=== PATIENT | female | born 1980 | race Caucasian/White ===

== ENCOUNTER → 2021-03-14 14:54 | Outpatient (CLI) | payer MEDICAID, SELFPAY ==
--- NOTE | 2021-03-14 15:02 | RAD_ITS ---
STUDY: X-RAY - LUMBAR SPINE REASON FOR EXAM: Female, 40 years old. DEGENERATIVE LUMBAR DISC TECHNIQUE: 5 view(s) of the lumbar spine were obtained. COMPARISON: None FINDINGS: Normal lumbar lordosis. There is no substantial scoliosis. There is a normal alignment of the vertebrae. Normal vertebral bodies and endplates. Normal disc space heights. There are bilateral fallopian coils in place. RAD/L/S Spine Min 4 Views IMPRESSION: Within normal limits x-ray examination of the lumbar spine. Electronically Signed: Zamzam Cm MD at 19:35 EDT Tel , Service support ,
--- NOTE | 2021-03-14 15:02 | RAD_ITS ---
STUDY: X-RAY - SACRUM/COCCYX REASON FOR EXAM: Female, 40 years old. DEGENERATIVE LUMBAR DISC TECHNIQUE: 3 view(s) of the sacrum and coccyx were obtained. COMPARISON: None. FINDINGS: Normal bilateral sacroiliac joints. Normal visualized sacral ala and fused sacral bodies. Normal sacrococcygeal junction with a normal angulation. Normal coccygeal segments. There are fallopian coils in place. RAD/Sacrum-Coccyx min 2 Views IMPRESSION: Within normal limits x-rays of the sacrum and coccyx. Electronically Signed: Zamzam Cm MD at 19:51 EDT Tel , Service support ,
[2021-03-14 18:14] LABS: Hemoglobin A1c 5.6 % (3.8-5.6)
[2021-03-14 18:19] LABS: ALB/GLOB Ratio 1.1 RATIO (0.9-2.4); AST(SGOT) 10 U/L (15-37); Alanine Aminotransfer ALT/SGPT 20 U/L (13-56); Albumin, Serum 3.6 g/dL (3.2-5.0); Alkaline Phosphatase 106 U/L (45-117); Anion Gap 5 (5-15); BUN 7 mg/dL (7-18); BUN/Creat Ratio 11.2 RATIO (10-20); Calcium,Total 8.8 mg/dL (8.5-10.1); Chloride 108 mmol/L (98-107); Cholesterol 200 mg/dL (200); Creatinine, Serum 0.62 mg/dL (0.55-1.02); EST Glomerular Filtration Rate 113 mL/min (>60); Est Glom Filt Rate - Afr Amer 136 mL/min (>60); Globulin 3.2 g/dL (2.2-4.2); Glucose 87 mg/dL (74-106); High Density Lipoprotein 37 mg/dL; Potassium 3.6 mmol/L (3.5-5.1); Protein, Total 6.8 g/dL (6.4-8.2); Sodium Level 140 mmol/L (136-145); Thyroid Stim Hormone (TSH) 1.22 uIU/mL (0.358-3.74); Triglycerides 148 mg/dL; Very Low Density Lipoprotein 30 mg/dL (5-40)
== END ==
PROVIDERS: PCP Family Medicine; Referring Provider Family Medicine; Visit Provider Family Medicine
DX: M51.36 Other intervertebral disc degeneration, lumbar region (principal); E66.9 Obesity, unspecified; Z13.1 Encounter for screening for diabetes mellitus
CPT/HCPCS: 36415; 72110; 72220; 80053; 80061; 83036; 84443

== ENCOUNTER 2022-07-08 09:24 | Emergency (ER) | payer MEDICAID, SELFPAY ==
[2022-07-08 09:25] VITALS: BP 167/99; PULSE 91; RESP 14; TEMP 36.6; O2SAT 97; BMI 42.9
--- NOTE | 2022-07-08 09:45 | EKG12_ITS ---
Test Reason : CP Blood Pressure : / mmHG Vent. Rate : 072 BPM Atrial Rate : 072 BPM P-R Int : 140 ms QRS Dur : 092 ms QT Int : 430 ms P-R-T Axes : 045 062 037 degrees QTc Int : 470 ms Normal sinus rhythm Normal ECG Confirmed by KARAN LA, FRANCISCO ([id number]), purchase request editor REGI RAMIREZ ([id number]) on 07/09/2022 11:27:40 AM Referred By: CITLALLI Confirmed By:FRANCISCO RUSSO MD
--- NOTE | 2022-07-08 09:46 | EDS_ITS ---
HPI History of Present Illness Chief Complaint: Chest Pain Informant: patient Onset/Context/Timing Onset: Days (3 days) Location: Substernal Current Severity: Mild Maximum Severity: Moderate Worsened By: Movement of Arm and Breathing Narrative Narrative: Patient presents secondary to chest pain. She points to the upper sternal area describing her area of pain and states it does radiate toward her shoulders. When she lies down flat she has more trouble breathing. She denies cough or congestion. She had some occasional chills but no fever. Symptoms started 2 days ago. No personal or family history of cardiac disease or PE. PFSH PFSH Medical History no medical history no medical history Home Medications amoxicillin 875 mg-potassium clavulanate 125 mg tablet 1 tab PO Q12H #14 tabs 08/23/21 [Rx Last Taken Unknown] naproxen 500 mg tablet (Naprosyn) 500 mg PO BID PRN pain #20 tabs 07/08/22 [Rx Last Taken Unknown] Allergy/AdvReac Type Severity Reaction Status Date / Time No Known Allergies Allergy Verified 07/08/22 09:25 Surgical History H/O tubal ligation Hx of cholecystectomy ROS ROS ED Constitutional Constitutional ED: Reports chills; Denies fever(s) Eyes Eyes: Denies change in vision or discharge from eye(s) ENT ENT ED: Denies discharge from eye(s), rhinorrhea or sore throat Cardiovascular Cardiovascular: Reports chest pain; Denies palpitations Respiratory/Chest Respiratory/Chest: Reports dyspnea; Denies cough Gastrointestinal Gastrointestinal: Denies abdominal pain, diarrhea, nausea or vomiting Genitourinary Genitourinary ED: Denies difficulty urinating or dysuria Musculoskeletal Musculoskeletal: Denies back pain or extremity pain Integumentary Denies Abrasions or rash Neurologic Neurologic: Denies headache(s) or weakness Psychiatric Psychiatric: Denies anxiety or depression Allergic/Immunologic Allergic/Immunologic ED: Denies lip swelling or urticaria EXAM Physical Exam Const Vital Signs: 07/08/22 09:25 07/08/22 09:50 07/08/22 09:50 Temperature 98 F Temperature Source Temporal Pulse Rate 91 81 Respiratory Rate 14 26 H Blood Pressure 167/99 H 118/84 H Blood Pressure Mean 121 95 Pulse Ox 97 94 94 Oxygen Delivery Method Room Air Room Air Room Air Positive well nourished and well developed General Appearance ED: well developed HEENT Reports normocephalic and head/scalp atraumatic Eyes PERRL and EOMs intact bilaterally Neck supple Chest Wall inspection of chest normal Chest Narrative: Anterior chest wall tenderness with palpation over the sternum. Resp normal respiratory effort and clear to auscultation bilaterally Cardio regular rate and regular rhythm GI normal to inspection, nondistended, normoactive bowel sounds Palpation: soft Extremity normal to inspection Neuro oriented x3 and no sensory deficits noted Sensorium / Orientation: alert Motor Exam: strength 5/5 throughout Psych mental status grossly normal Skin no rashes or lesions noted Heart Score History: Slightly/Non-Suspicious ECG: Normal Age: </= 45 years Risk Factors: No Risk Factors Troponin: </= Normal Limit Score: 0 MDM MDM MDM Narrative Medical decision making narrative: Patient placed on campus monitor. EKG, chest x-ray, lab work obtained. Lab Data Attestation: I reviewed the patient's lab results. Labs: Laboratory Results - last 24 hr 07/08/22 07/08/22 07/08/22 09:49 09:49 09:49 WBC 9.7 RBC 5.37 Hgb 15.6 H Hct 45.7 MCV 85.1 MCH 29.1 MCHC 34.1 RDW Std Deviation 42.7 RDW Coeff of Howard 13.8 Plt Count 229 MPV 10.1 Immature Gran % (Auto) 0.200 Neut % (Auto) 71.7 H Lymph % (Auto) 20.0 Meagher % (Auto) 5.6 Eos % (Auto) 1.9 Baso % (Auto) 0.6 Absolute Neuts (auto) 7.0 Absolute Lymphs (auto) 1.94 Nucleated RBC % 0 D-Dimer Quant (PE/DVT) 0.31 Sodium Potassium Chloride Carbon Dioxide Anion Gap BUN Creatinine Estim Creat Clear Calc Est GFR (MDRD) Af Amer Est GFR (MDRD) Non-Af BUN/Creatinine Ratio Glucose Calcium Troponin I High Sens Serum , Qual NEGATIVE 07/08/22 09:49 WBC RBC Hgb Hct MCV MCH MCHC RDW Std Deviation RDW Coeff of Howard Plt Count MPV Immature Gran % (Auto) Neut % (Auto) Lymph % (Auto) Meagher % (Auto) Eos % (Auto) Baso % (Auto) Absolute Neuts (auto) Absolute Lymphs (auto) Nucleated RBC % D-Dimer Quant (PE/DVT) Sodium 137 Potassium 3.6 Chloride 109 H Carbon Dioxide 23.0 Anion Gap 5 BUN 9 Creatinine 0.56 Estim Creat Clear Calc 105.62 Est GFR (MDRD) Af Amer 154 Est GFR (MDRD) Non-Af 127 BUN/Creatinine Ratio 16.1 Glucose 113 H Calcium 8.7 Troponin I High Sens 3 Serum , Qual Radiography Chest X-Ray - ED: 1 View, Read by ED Physician, Normal, Heart, Lungs and Mediastinum Diagnostic Testing: Clinical Impression(s) from Imaging Studies Chest X-Ray 07/08/22 10:00 IMPRESSION: No acute abnormality is seen. Electronically Signed: Jason Lara MD at 10:46 EDT , EKG Initial EKG: Attestation: I personally reviewed and interpreted this EKG as follows: Interpretation: Sinus Rhythm (Sinus at 72 with no acute ischemia.) Treatment and Re-Evaluation Narrative: On repeat evaluation patient resting calmly. Lab work reviewed with her. CBC and chemistry studies normal. Troponin and D-dimer both negative. Patient has had ongoing symptoms for greater than 24 hours I do not feel she needs a repeat troponin. Chest x-ray per my interpretation shows no acute findings. Radiology interpretation is also reviewed. EKG is sinus with no ischemia. With patient having reproducible chest wall pain I will give her a dose of Toradol here and write her prescription for naproxen. Return instructions are provided. Discharge Plan Triage Chief Complaint: Chest Pain ED Provider: Erin Kenny Dx/Rx/DC Orders Clinical Impression: Atypical chest pain Instructions: ED Chest Pain, Noncardiac Prescriptions: New naproxen [Naprosyn] 500 mg tablet 500 mg PO BID PRN (Reason: pain) Qty: 20 0RF No Action amoxicillin-pot clavulanate 875-125 mg tablet 1 tab PO Q12H Qty: 14 0RF Primary Care Provider: Tomasa Degroot Referrals: Umberto Osorio MD [Non-Staff] - Tomasa Degroot DO [Primary Care Provider] - 1 Week Disposition Disposition: Home, Self Care
[2022-07-08 09:50] VITALS: BP 118/84; PULSE 81; RESP 26; O2SAT 94
[2022-07-08] MEDS: Aspirin 81 MG TAB.CHEW 324 MG PO (09:57)
[2022-07-08] MEDS: 0.9% Normal Saline 1,000 ML 150 ML IV (09:57)
[2022-07-08 10:00] LABS: Absolute Lymphocyte Count 1.94 X10^3/uL (0.83-4.51); Basophil# 0.06 X10^3/uL; Basophil% 0.6 % (0-1); Eosinophil# 0.18 X10^3/uL; Eosinophils% 1.9 % (0-5); Hematocrit 45.7 % (37-47); Hemoglobin 15.6 g/dL (12.0-15.0); Lymphocyte # 1.94 X10^3/ul (0.83-4.51); Mean Corp Hgb Conc 34.1 g/dL (32-36); Mean Corpuscular Hgb 29.1 pg (27.0-32.0); Mean Corpuscular Volume 85.1 fL (81-99); Mean Platelet Vol. 10.1 fl (6.2-12.0); Monocyte# 0.54 X10^3/uL; Monocyte% 5.6 % (0-10); NRBC Flagged by Analyzer 0 % (0-5); Neutrophil # 6.95 X10^3/uL (2.7-7.7); Neutrophil % 71.7 % (47-70); Platelet Count 229 K/mm3 (150-450); RBC Distribution Width CV 13.8 % (11.6-14.6); RBC Distribution Width SD 42.7 fl (35.1-43.9); Red Blood Count 5.37 M/mm3 (4.2-5.4); White Blood Count 9.7 K/mm3 (4.4-11.0)
--- NOTE | 2022-07-08 10:00 | RAD_ITS ---
STUDY: X-RAY CHEST REASON FOR EXAM: Female, 41 years old. Chest pain and chest tightness. TECHNIQUE: Single AP portable view of the chest. COMPARISON: None. FINDINGS: EKG electrodes are seen. The lungs are clear and expanded. Calcified granuloma in the right lung apex. There is no demonstrated pleural abnormality. Normal size heart. Normal mediastinum and heidi. Normal visualized pulmonary arteries. Normal visualized aortic arch and descending thoracic aorta. Normal visualized thoracic spine. Normal visualized ribs, clavicles, and shoulders. There is no demonstrated abnormality of the visualized soft tissue structures of the upper abdomen. RAD/Chest 1 View (Portable) IMPRESSION: No acute abnormality is seen. Electronically Signed: Jason Lara MD at 10:46 EDT ,
[2022-07-08 10:15] LABS: D-Dimer Quantitative (DVT/PE) 0.31 FEU/ug/m (0.27-0.49)
[2022-07-08 10:17] LABS: Anion Gap 5 (5-15); BUN 9 mg/dL (7-18); BUN/Creat Ratio 16.1 RATIO (10-20); Calcium,Total 8.7 mg/dL (8.5-10.1); Chloride 109 mmol/L (98-107); Creatinine, Serum 0.56 mg/dL (0.55-1.02); EST Glomerular Filtration Rate 127 mL/min (>60); Est Glom Filt Rate - Afr Amer 154 mL/min (>60); Estimated Creatinine Clearance 105.62 ml/min; Glucose 113 mg/dL (74-106); Potassium 3.6 mmol/L (3.5-5.1); Sodium Level 137 mmol/L (136-145); Troponin-I HS (w/2H Reflex) 3 pg/mL (3.0-54.0)
[2022-07-08 10:40] LABS: Internal QC Validated? YES +Cl - CLEAR BKGD; Pregnancy, Serum, hCG Quali. NEGATIVE Negative
[2022-07-08 11:26] VITALS: BP 122/85; PULSE 63; RESP 18; O2SAT 97
[2022-07-08] MEDS: Ketorolac 30 MG/ML Syringe IV (11:27)
[2022-07-08 11:57] LABS: Reflex Troponin-HS? (from REC) Y
== END 2022-07-08 11:39 | disposition home or self-care (01) ==
PROVIDERS: Emergency Provider Emergency Medicine; PCP Family Medicine; Visit Provider Emergency Medicine
DX: R07.89 Other chest pain (principal); R68.83 Chills (without fever)
CPT/HCPCS: 71045; 80048; 84484; 84703; 85025; 85379; 93005; 96361; 96374; 99285; J7030; A4216

== ENCOUNTER → 2022-12-18 | Outpatient (CLI) | payer MEDICAID, SELFPAY | END | disposition home or self-care (01) | LOC: LABSPEC 15:28 | PROVIDERS: PCP Family Medicine; Visit Provider Family Medicine | DX: R31.9 Hematuria, unspecified (principal) | CPT/HCPCS: 87086; 87088 ==

== ENCOUNTER → 2022-12-25 | Outpatient (CLI) | payer MEDICAID, SELFPAY ==
--- NOTE | 2022-12-25 09:22 | RAD_ITS ---
STUDY: X-RAY - ABDOMEN/PELVIS REASON FOR EXAM: Female, 42 years old. KUB- KIDNEY STONE TECHNIQUE: Single AP view of the abdomen / pelvis. COMPARISON: None. FINDINGS: Normal visualized lung bases. There is a moderate amount of colonic fecal material. The patient is status post cholecystectomy. ESSURE devices seen in both fallopian tubes. Normal visualized osseous structures. RAD/Abdomen Single View IMPRESSION: Moderate amount of fecal material is seen in the colon. Electronically Signed: Jason Lara MD at 14:01 EST ,
== END | disposition home or self-care (01) ==
LOC: MTRAD 09:20
PROVIDERS: PCP Family Medicine; Referring Provider Family Medicine; Visit Provider Family Medicine
DX: R10.9 Unspecified abdominal pain (principal); R10.2 Pelvic and perineal pain; M54.9 Dorsalgia, unspecified
CPT/HCPCS: 74018

== ENCOUNTER 2023-05-31 15:43 | Emergency (ER) | payer MEDICAID, SELFPAY ==
[2023-05-31 15:44] VITALS: BP 148/88; PULSE 110; RESP 18; TEMP 36.9; O2SAT 99; BMI 39.2
--- NOTE | 2023-05-31 16:07 | RAD_ITS ---
INDICATION: pain, injury EXAMINATION/TECHNIQUE: X-RAY - RIGHT XR Knee 3 Views 3 VIEWS COMPARISON: FINDINGS: No acute fracture or dislocation. No destructive bone changes. Joint spaces are well-maintained. Normal alignment. Soft tissues are unremarkable. No radiopaque foreign body or soft tissue gas. RAD/Knee 3 Views IMPRESSION: Negative. Electronically Signed: Karol Singh MD at 16:50 EDT Reading Location ID and State: [id number] / Tel , Service support ,
--- NOTE | 2023-05-31 16:09 | EDS_ITS ---
HPI <JENNIFER Thornton - Last Filed: 05/31/23 20:01> History of Present Illness Chief Complaint: Fall Narrative Narrative: Patient presenting today with pain to her right fifth finger and right knee after mechanical fall that occurred on Thursday. She reports that she tripped and tried to catch herself by grabbing onto the edge of a chair that ended up falling on the ground and hit her right hand and right knee on the ground as she fell. She is able to ambulate but feels like her knee is swollen and slightly painful when walking. She reports that her right fifth finger has been painful and edematous since the fall. She did not hit her head and there was no loss of consciousness. She denies any other injury. PFSH <JENNIFER Thornton - Last Filed: 05/31/23 20:01> PFSH Home Medications naproxen 500 mg tablet (Naprosyn) 500 mg PO BID PRN pain #20 tabs 07/08/22 [Rx Last Taken Unknown] benzonatate 100 mg capsule 200 mg (2 x 100 mg) PO TID PRN cough #30 caps 12/23/22 [Rx Last Taken Unknown] Allergy/AdvReac Type Severity Reaction Status Date / Time No Known Allergies Allergy Verified 05/31/23 15:46 Surgical History H/O tubal ligation Hx of cholecystectomy Social History Smoking Status: Current every day smoker tobacco type: cigarettes ROS <JENNIFER Thornton - Last Filed: 05/31/23 20:01> ROS ED Constitutional Constitutional ED: Denies chills or fever(s) Cardiovascular Cardiovascular: Denies chest pain Respiratory/Chest Respiratory/Chest: Denies cough or dyspnea Gastrointestinal Gastrointestinal: Denies abdominal pain, nausea or vomiting Musculoskeletal Musculoskeletal: Reports arthralgias; Denies back pain or neck pain Integumentary Denies Abrasions Neurologic Neurologic: Denies paresthesias or weakness EXAM <JENNIFER Thornton - Last Filed: 05/31/23 20:01> Physical Exam Const Vital Signs: 05/31/23 15:44 05/31/23 16:00 Temperature 98.4 F Temperature Source Temporal Pulse Rate 110 H Respiratory Rate 18 Respiratory Effort Normal Non-Labored Respiratory Depth Normal Respiratory Pattern Normal Blood Pressure 148/88 H Blood Pressure Mean 108 Pulse Ox 99 Oxygen Delivery Method Room Air Room Air Positive well nourished, well developed and no apparent distress General Appearance ED: well developed HEENT Reports normocephalic and head/scalp atraumatic Mouth ED: Yes moist mucous membranes normal Eyes PERRL and EOMs intact bilaterally Neck full ROM and supple Chest Wall inspection of chest normal Resp normal respiratory effort and clear to auscultation bilaterally Cardio regular rate and regular rhythm GI soft to palpation, non-tender, non-distended and no masses Back/Spine normal ROM and normal to inspection Extremity normal to inspection and full ROM Extremity Narrative: Right fifth finger slightly edematous and painful to palpation. Full range of motion to the MCP, PIP, and DIP joints of the right finger. Slight area of edema to the inferior aspect of the right knee, full range of motion to the right knee, DP and radial pulses 2+ bilaterally, good capillary refill, sensation intact Neuro oriented x3, CN's II-XII intact bilaterally, moves all extremities, no focal motor deficits and no sensory deficits noted Sensorium / Orientation: awake and alert Psych mental status grossly normal and thought process normal Skin no rashes or lesions noted and no wounds <Yung Hartley MD - Last Filed: 05/31/23 21:07> Physical Exam Const Vital Signs: 05/31/23 15:44 05/31/23 16:00 Temperature 98.4 F Temperature Source Temporal Pulse Rate 110 H Respiratory Rate 18 Respiratory Effort Normal Non-Labored Respiratory Depth Normal Respiratory Pattern Normal Blood Pressure 148/88 H Blood Pressure Mean 108 Pulse Ox 99 Oxygen Delivery Method Room Air Room Air [facility] <JENNIFER Thornton - Last Filed: 05/31/23 20:01> [facility] Narrative Medical decision making narrative: Patient presenting after mechanical fall that occurred on Thursday. She reports pain to her right fifth finger and to her right knee. Her right fifth finger painful to palpation and slightly edematous. Right knee has a slight area of edema to the inferior aspect and is slightly painful to palpation. X-rays of the right hand and right knee will be obtained to rule out fracture and are negative. She has been given an aluminum splint for her finger and RICE instructions. I have told her that she can get a [id number]-oluqbea sleeve for her knee if she feels she needs it. She is to alternate Tylenol and ibuprofen for pain. She is to follow-up with her PCP and will be discharged home in stable condition. She is comfortable with plan Radiography X-Ray: Read by ED Physician and Read by Radiologist Diagnostic Testing: Clinical Impression(s) from Imaging Studies Knee X-Ray 05/31/23 16:07 IMPRESSION: Negative. Electronically Signed: Karol Singh MD at 16:50 EDT Reading Location ID and State: [id number] / Tel , Service support , Hand X-Ray 05/31/23 16:10 IMPRESSION: Negative. Electronically Signed: Karol Singh MD at 16:54 EDT Reading Location ID and State: [place] / Tel , Service support , <Yung Hartley MD - Last Filed: 05/31/23 21:07> [facility] MDM Narrative Medical decision making narrative: Patient presenting after mechanical fall that occurred on Thursday. She reports pain to her right fifth finger and to her right knee. Her right fifth finger painful to palpation and slightly edematous. Right knee has a slight area of edema to the inferior aspect and is slightly painful to palpation. X-rays of the right hand and right knee will be obtained to rule out fracture and are negative. She has been given an aluminum splint for her finger and RICE instructions. I have told her that she can get a [id number] sleeve for her knee if she feels she needs it. She is to alternate Tylenol and ibuprofen for pain. She is to follow-up with her PCP and will be discharged home in stable condition. She is comfortable with plan. Dr. Hartley: I have personally performed a face to face assessment of the patient and have reviewed the ELIER Note. I performed a substantive portion of the visit including all aspects of the following. My bishop findings include: History is fall with injury to right pinky finger/fifth digit and knee. Exam is afebrile. Vital signs noted. Diffuse tenderness to palpation right fifth digit. Good capillary refill. Range of motion limited secondary to pain. Positive extension and flexion of bilateral knees. Medical Decision Making: Check x-rays. X-rays interpreted by myself independently show no evidence of acute fracture in the knee or in the hand. I reviewed the radiology report which confirms my independent interpretation. Foam splint for support. She was told to exercise her finger daily. She can use an Jordy wrap or neoprene sleeve on her knee. Follow-up with primary care. Discharge. Other additions or changes: [None] Radiography Diagnostic Testing: Clinical Impression(s) from Imaging Studies Knee X-Ray 05/31/23 16:07 IMPRESSION: Negative. Electronically Signed: Karol Singh MD at 16:50 EDT Reading Location ID and State: [place] MD Tel , Service support , Hand X-Ray 05/31/23 16:10 IMPRESSION: Negative. Electronically Signed: Karol Snigh MD at 16:54 EDT Reading Location ID and State: [id number] / Tel , Service support , Discharge Plan Triage Chief Complaint: Fall ED Midlevel Provider: Lianna Reynoso ED Provider: Yung Hartley Dx/Rx/DC Orders Clinical Impression: Contusion of finger, Contusion of knee, Fall Instructions: Bruises (Contusions) Prescriptions: No Action benzonatate 100 mg capsule 200 mg PO TID PRN (Reason: cough) Qty: 30 0RF naproxen [Naprosyn] 500 mg tablet 500 mg PO BID PRN (Reason: pain) Qty: 20 0RF Primary Care Provider: Tomasa Degroot Referrals: Tomasa Degroot DO [Primary Care Provider] - 5-7 Days Activity Restrictions/Additional Instructions: Alternate Tylenol and ibuprofen for your pain, please follow-up with your PCP. Ice your knee and finger several times a day for the next few days. Disposition Disposition: Home, Self Care Discharge Date/Time: 05/31/23 17:36
--- NOTE | 2023-05-31 16:10 | RAD_ITS ---
INDICATION: pain, injury EXAMINATION/TECHNIQUE: X-RAY - RIGHT XR Hand Min 3 Views 3 VIEWS COMPARISON: FINDINGS: No acute fracture or dislocation. No destructive bone changes. Joint spaces are well-maintained. Normal alignment. Soft tissues are unremarkable. No radiopaque foreign body or soft tissue gas. RAD/Hand Min 3 Views IMPRESSION: Negative. Electronically Signed: Karol Singh MD at 16:54 EDT Reading Location ID and State: [id number] / Tel , Service support ,
== END 2023-05-31 17:36 | disposition home or self-care (01) ==
PROVIDERS: Emergency Provider Emergency Medicine; PCP Family Medicine; Visit Provider Emergency Medicine
DX: S60.051A Contusion of right little finger without damage to nail, initial encounter (principal); F17.210 Nicotine dependence, cigarettes, uncomplicated; S80.01XA Contusion of right knee, initial encounter; W01.0XXA Fall on same level from slipping, tripping and stumbling without subsequent striking against object, initial encounter
CPT/HCPCS: 29131; 29130; 73130; 73562; 99283

== ENCOUNTER 2023-09-10 10:30 | Outpatient (RCR) | payer MEDICAID, SELFPAY ==
--- NOTE | 2023-07-02 12:00 | HP.PTEVAL_ITS ---
Patient's Visit Information Visit Information Visit Information: ATILIO LORA is a 42 year old F referred to Physical Therapy by Dr. Tomasa Degroot DO with a diagnosis of LUMBAR RADICULOPATHY. Date of Evaluation: 07/02/23 Physical Therapist: Jeronimo Gama PT, Cert MDT, OCS Visit Plan Frequency: 2x /Week Duration: 4 Weeks Plan: PATIENT HAS SOCIAL PHOPHIA /ANXIETY TO INFLEUNCE PATIENT CONDITION PT INTERVTIONS DLS ,POSTURE EX'S ,LE STRENGTHENING ESPECIALLY RIGHT , MODALTIES AND LUMABR ROM TONO Subjective Subjective: This 42 y/o female presents to physical therapy with lumbar radiculopathy. Patient has lumbar pain radicular symptoms right leg with many years over 20 years. Patient has h/o DDD. Patient has had PT in past. Seen DR recommended PT but wanted to do MRI. Patient most recently fell ~ 1 month ago due to right knee giving way. Patient went to ER had x-rays knee. Patient did try prednisone. Location pain symmetrical lumbar right buttock to knee. Aggravating bending lifting twisting ,standing ,sitting and walking. Alleviating factors rest. C/O paresthesia/tingling right leg. Coughing/sneezing -. Bowel/bladder -. Patient has difficulty sleeping at night. Patient pain affects QOL and function. Patient has anxiety , and social phobia ,PTSD. Patient goals to decrease pain. SOCAIL: single VOCATION: unemployed Pain Bilateral Back: Pain Intensity (Out of 10): 5 Pain Intensity Range: 10 Right Lower Extremity: Pain Intensity (Out of 10): 7 Pain Intensity Range: 10 Objective Objective: POSTURE: mild forward posture GAIT: slow olga mild forward posture NEURO: denies paresthesia/tingling ,reflexes L3-4,L4-5,L5-S1 1/3 SYMMTRIES: align MMT: quads/hams 4-/5 right ,left 4/5 ,hip flexion right 3+/5 ,left 4-/5 ,ankle 5/5 LUMBAR ROM: flexion min ,extension mod loss ,side glides min loss FLEXABLITY: min tight hamstrings AROM: right knee 0-80 degrees pain Special Tests L/S Slump test left side: Negative L/S Slump test right side: Negative L/S Left Straight Leg Raise: Negative L/S Right Straight Leg Raise: Negative Lumbar Standing: Flexion - Mechanical Response: No effect Lumbar Standing: Flexion - Symptoms During Testing: No effect Lumbar Standing: Flexion - Symptoms After Testing: No effect Lumbar Standing: Extension - Mechanical Response: No effect Lumbar Standing: Extension - Symptoms During Testing: Increases Lumbar Standing: Extension - Symptoms After Testing: No worse Lumbar Standing: Right Side Glides - Mechanical Response: No effect Lumbar Standing: Right Side [place] - Symptoms During Testing: Increases Lumbar Standing: Right Side [place] - Symptoms After Testing: No worse Lumbar Standing: Left Side [place] - Mechanical Response: No effect Lumbar Standing: Left Side [place] - Symptoms During Testing: Increases Lumbar Standing: Left Side [place] - Symptoms After Testing: No worse Balance/Special Test Scores Oswestry Low Back Score: 35 Goals Goal 1:: Patient to be I with HEP Goal Time Frame: 4-6 Weeks Goal 2:: Patient to demonstrate 40% decrease pain with improved function Goal Time Frame: 4-6 Weeks Goal 3:: Patient to improve lumbar ROM for function of recovery to put on shoes Goal Time Frame: 4-6 Weeks Goal 4:: Patient to improve strength right leg 4/5 quads/hams/hip to improve gait Goal Time Frame: 4-6 Weeks Goal 5:: Patient to improve back oswestry score by 5 point to improve QOL Goal Time Frame: 4-6 Weeks Rehabilitation Potential Physical Therapy Diagnosis: This patient has right lumbar radiculopathy with possible stenosis vs Disc with pain with positioning motion testing walking and standing thus will need skilled PT Rehabilitation Potential: Fair Anticipated Interventions Patient/Client Instruction: Educate patient on: Condition and Plan of Care For the Purpose of:: To decrease pain, To increase ROM, To improve muscle performance and motor function, To improve ability of physical actions for home/community/work/leisure, To improve gait and locomotor functions, To improve health of tissue, To decrease soft tissue restriction, To increase flexibility/R OM, To improve endurance and To reduce risk of recurrence Therapeutic Exercise to Include: Strength training, Power training, Balance training, Body mechanics, Postural training, Flexibilty training, Active ROM and Dynamic Lumbar Stabilization Comment: RLE QUADS/HAMS/HIP For the Purpose of:: To decrease pain, To increase ROM, To improve muscle performance and motor function, To improve ability to perform ADL's, To increase tolerance to activity/condition/position, To improve ability of physical actions for home/community/work/leisure, To improve health of tissue, To decrease soft tissue restriction, To increase flexibility/ROM and To reduce risk of recurrence TENS: Yes IF ES: Yes Cryotherapy (ice pack, ice massage): Yes Thermo therapy (hot pack): Yes Ultrasound (thermal/non thermal): Yes For the Purpose of:: To decrease pain, To increase ROM, To improve nutrient delivery to tissue, To increase oxygenation perfusion, To improve health of tissue and To decrease soft tissue restriction Text: Thank you for the opportunity to evaluate your patient. For Medicare and Medicare HMO plans, please review the plan of care and approve it. It will need to be FAXED BACK to us at [phone] for Medicare purposes. For Medicare only, by signing this I certify the plan of care. Please let me know if there are questions or concerns regarding this plan of care. Physician Signature: Date:
--- NOTE | 2023-09-10 11:22 | HP.PTDCSUM ---
Discharge Summary D/C summary: It has been my pleasure to treat ATILIO LORA referred by Dr. Tomasa Degroot DO, with the diagnosis of LUMBAR RADICULOPATHY for a total of 7 visit(s). Discharge Date: 09/10/23 Please see the following information for a summary of their discharge status. Subjective Subjective: Pain this week mostly at night rolling 8/10 for short time. Intermittent pain standing pinching pain in R LB and down R leg with pins and needles. has not happened much lately but it can come out of the blue. One day pinched bending to get things out of dryer. wants answers to her pain and is frustrated with history. No spine or pain management doctors currently. next step is MRI. Avoids moving furniture because it will hurt. HEP: Doing daily exercises. Pain Bilateral Back: Pain Intensity (Out of 10): 5 Right Lower Extremity: Pain Intensity (Out of 10): 0 Overall Improvement % Improvement: 0 Objective Objective/Function: Pt is self admittedly fullk of anxiety. Also harps on the past and all she has missed with back pain when questioned about her current pain. also overly focussed on MRI of degeneration she had 16 byrs ago and it could not have gotten better She is frustrated and wants next step(MRI) for emotional, psychological closure). lumbar AROM ext mod limited with pinch pain in buttock R, R SB limited greater than L, flexionslow and hesitant. reflexes 1/3 patella and achilles Sensation LE WNL to gross light touch. Walking well today and transitions I. Goals Goal 1:: Patient to be I with HEP Goal Progress: Goal Met Goal 2:: Patient to demonstrate 40% decrease pain with improved function Goal Progress: Not Progressing Goal 3:: Patient to improve lumbar ROM for function of recovery to put on shoes Goal Progress: Not Progressing Goal 4:: Patient to improve strength right leg 4/5 quads/hams/hip to improve gait Goal 5:: Patient to improve back oswestry score by 5 point to improve QOL Goal Progress: Goal Met Plan Plan: d/c , pt to contact doctor regarding next medical step due to her frustration. D/C Information d/c sentence: If there are questions or concerns regarding this patient's physical therapy, please feel free to call me at [phone]. Thank you for the referral of this patient. Sincerely, Prateek Forrest, DPT, OCS, CSCS Balance/Gait/Functional tests Balance/Special Test Scores Oswestry Low Back Score: 16 Improvement % Improvement: 0
== END 2023-09-10 14:40 | disposition home or self-care (01) ==
LOC: PT 10:30
PROVIDERS: PCP Family Medicine; Referring Provider Family Medicine; Visit Provider Family Medicine
DX: M54.17 Radiculopathy, lumbosacral region (principal)
CPT/HCPCS: 97110; 97162; 97164

== ENCOUNTER 2024-09-01 19:16 | Emergency (ER) | payer MEDICAID, SELFPAY ==
[2024-09-01 19:17] VITALS: BP 133/90; PULSE 82; RESP 16; TEMP 36.8; O2SAT 98; BMI 77.6
--- NOTE | 2024-09-01 19:34 | EDS_ITS ---
HPI History of Present Illness Chief Complaint: Lower Extremity Injury Informant: patient Narrative Narrative: 43-year-old female presenting to the emergency room with right leg pain. Patient states that on 16 August after being at the hospital most of the day wi th her daughter who was in labor she walked about 45 minutes home. She states that she walked and when she got home she had pain mid christensen distally. She states that every day when she goes to walk as she walks more it hurts more. It hurts for her to pull her toes back. She states her feet feel cold and there are tingling. States that she talked to a [employer] nurse on the phone was told that she got some cough or shortness of breath that she should be seen so she went to urgent care she developed a cough yesterday and went to urgent care today and was referred to the emergency department. The patient states that she feels a knot on her mid christensen muscle area that seems to get worse when she bends her toes back towards her head no reported fevers. No rashes. PFSH PFSH Home Medications ?Medication ?Instructions ?Recorded ?Last Taken ?Type naproxen 500 mg tablet (Naprosyn) 500 mg PO BID PRN pain #20 tabs 07/08/22 Unknown Rx benzonatate 100 mg capsule 200 mg (2 x 100 mg) PO TID PRN 12/23/22 Unknown Rx cough #30 caps Allergy/AdvReac Type Severity Reaction Status Date / Time No Known Allergies Allergy Verified 09/01/24 19:19 Surgical History H/O tubal ligation Hx of cholecystectomy Social History Smoking Status: Current every day smoker tobacco type: cigarettes ROS ROS ED Constitutional Constitutional ED: Denies chills, fever(s) or weight loss Eyes Eyes: Denies change in vision or diplopia ENT ENT ED: Denies ear pain, rhinorrhea or sore throat Cardiovascular Cardiovascular: Denies chest pain, orthopnea, palpitations or racing heartbeat Respiratory/Chest Respiratory/Chest: Reports cough; Denies dyspnea or orthopnea Gastrointestinal Gastrointestinal: Denies abdominal pain, diarrhea, nausea or vomiting Genitourinary Genitourinary ED: Denies dysuria, hematuria or urinary frequency Musculoskeletal Musculoskeletal: Reports other Details: See history of present illness ; Denies arthralgias or myalgias Integumentary Denies abscess or rash Neurologic Neurologic: Denies headache(s) or weakness Psychiatric Psychiatric: Denies anxiety, depression, suicidal ideation or suicidal thoughts Endocrine Endocrinology: Denies polydipsia, polyphagia or polyuria Allergic/Immunologic Allergic/Immunologic ED: Denies mouth swelling, tongue swelling or urticaria EXAM Physical Exam Const Vital Signs: 09/01/24 19:17 Temperature 98.3 F Temperature Source Temporal Pulse Rate 82 Respiratory Rate 16 Blood Pressure 133/90 H Blood Pressure Mean 104 Pulse Ox 98 Oxygen Delivery Method Room Air Positive well nourished and well developed General Appearance ED: well developed HEENT Reports normocephalic, head/scalp atraumatic and moist mucous membranes Eyes PERRL and EOMs intact bilaterally Neck full ROM, no lymphadenopathy, supple and no JVD Resp normal respiratory effort and clear to auscultation bilaterally Cardio regular rate, regular rhythm and no murmurs GI normal to inspection, nondistended, normoactive bowel sounds and non-tender Palpation: soft Back/Spine no CVA tenderness and normal ROM Extremity Extremity Narrative: She does not appear to have any tenderness along the tibial spine. No appreciated deformity. She has tenderness along tibialis anterior muscle and the extensor digitorum longus. She has pain when she forcefully dorsiflex her toes. No significant swelling. No ecchymosis or hematomas felt. The calves are soft. She has +2 dorsalis pedis and posterior tibial pulse. Toes are pink with normal capillary refill. I do not appreciate a temperature difference in between the 2 feet. General Extremety ED: Negative for edema General Extremity: Negative for edema Neuro oriented x3 and CN's II-XII intact bilaterally Sensorium / Orientation: alert Motor Exam: strength 5/5 throughout Psych mental status grossly normal Mood & Affect: Negative for depressed or tearful Skin no rashes or lesions noted and no wounds MDM MDM MDM Narrative Medical decision making narrative: Differential diagnosis includes but not limited to fracture stress fracture tendinitis muscular strain ligamentous injury is most this injury neurovascular injury DVT My independent interpretation of the plain films of the tib-fib x-rays is no acute fracture. Clinically the pain seems to be isolated into the anterior musculature compartment. I do not see evidence of compartment syndrome. This is probably an overuse possibly tendinitis. I would have her Jordy wrap the ankle to limit flexion extension. Would recommend anti-inflammatories ice and rest. If not improvement I would have her follow-up with the primary care possibly orthopedics if indicated. I do not feel that this is DVT as there is no significant swelling the pain is isolated to the anterior compartment History & Record Review Discussion w/independent historian: Patient Radiography Diagnostic Testing: Clinical Impression(s) from Imaging Studies Tibia/Fibula X-Ray 09/01/24 19:35 IMPRESSION: Normal x-ray examination of the tibia and fibula. Electronically Signed: Nghia Rudd MD at 20:08 EDT Reading Location ID and State: [facility] / [place] Tel , Service support , Discharge Plan Triage Chief Complaint: Lower Extremity Injury ED Provider: Jose Harrell Dx/Rx/DC Orders Clinical Impression: Anterior christensen splints, Tendonitis Instructions: Christensen Splints, ED Tendonitis Prescriptions: No Action benzonatate 100 mg capsule 200 mg PO TID PRN (Reason: cough) Qty: 30 0RF naproxen [Naprosyn] 500 mg tablet 500 mg PO BID PRN (Reason: pain) Qty: 20 0RF Primary Care Provider: Tomasa Degroot Referrals: Tomasa Degroot DO [Primary Care Provider] - 1 Week Print Language: Frisian Disposition Disposition: Home, Self Care Discharge Date/Time: 09/01/24 20:30
--- NOTE | 2024-09-01 19:35 | RAD_ITS ---
STUDY: X-RAY - RIGHT TIBIA AND FIBULA REASON FOR EXAM: Female, 43 years old. pain TECHNIQUE: 2 view(s) of the tibia and fibula were obtained. COMPARISON: None. FINDINGS: Normal visualized tibia. Normal visualized fibula. The soft tissue structures are unremarkable. RAD/Tibia & Fibula 2 Views IMPRESSION: Normal x-ray examination of the tibia and fibula. Electronically Signed: Nghia Rudd MD at 20:08 EDT ,
== END 2024-09-01 20:30 | disposition home or self-care (01) ==
PROVIDERS: Emergency Provider Emergency Medicine; PCP Family Medicine; Visit Provider Emergency Medicine
DX: S86.891A Other injury of other muscle(s) and tendon(s) at lower leg level, right leg, initial encounter (principal); S86.892A Other injury of other muscle(s) and tendon(s) at lower leg level, left leg, initial encounter; X58.XXXA Exposure to other specified factors, initial encounter; Y93.01 Activity, walking, marching and hiking; M77.9 Enthesopathy, unspecified; F17.210 Nicotine dependence, cigarettes, uncomplicated
CPT/HCPCS: 73590; 99282

== ENCOUNTER 2024-12-27 13:39 | Emergency (ER) | payer MEDICAID, SELFPAY ==
[2024-12-27 13:40] VITALS: BP 135/102; PULSE 89; RESP 16; TEMP 36.6; O2SAT 99; BMI 38.4
--- NOTE | 2024-12-27 15:50 | EX.ED.VIS.UR ---
HPI HPI - URI History of Present Illness Chief Complaint: Cold Sx Informant: patient Narrative Narrative: Patient is a 44-year-old female presenting with her children for evaluation of flulike symptoms. She reports history of tobacco use (1 pack/day) but has been smoking much less since being sick. She has developed fevers, cough, congestion, left-sided ear pain and sore throat. She has been taking Tylenol and using cough tubes for her symptoms. She notes that her 2 children who are also here to be evaluated were tentatively diagnosed with influenza this week and at urgent care. Patient was concerned she could have pneumonia and does not know if she has she has the flu or not so she came in for evaluation. She denies any difficulty breathing. Not reporting any chest pain. No improving vomiting or diarrhea. No rash reported. No fever within the last 24 hours ROS ROS ED Constitutional Constitutional ED: Reports chills, fever(s) and subjective Eyes Eyes: Denies change in vision ENT ENT ED: Reports ear pain, sore throat and other Details: Congestion Respiratory/Chest Respiratory/Chest: Reports cough; Denies dyspnea or sputum Gastrointestinal Gastrointestinal: Denies abdominal pain, diarrhea or vomiting Musculoskeletal Musculoskeletal: Denies arthralgias Integumentary Denies rash Neurologic Neurologic: Denies weakness PFSH PFSH Home Medications ?Medication ?Instructions ?Recorded ?Last Taken ?Type naproxen 500 mg tablet (Naprosyn) 500 mg PO BID PRN pain #20 tabs 07/08/22 Unknown Rx benzonatate 100 mg capsule 200 mg (2 x 100 mg) PO TID PRN 12/23/22 Unknown Rx cough #30 caps albuterol sulfate 90 mcg/actuation 1 - 2 puff inhalation Q4H PRN PRN 12/27/24 Unknown Rx aerosol inhaler (Ventolin HFA) Wheezing or cough #1 inh prednisone 20 mg tablet 40 mg (2 x 20 mg) PO DAILY #10 12/27/24 Unknown Rx TABLETS Allergy/AdvReac Type Severity Reaction Status Date / Time No Known Allergies Allergy Verified 12/27/24 13:42 Surgical History H/O tubal ligation Hx of cholecystectomy Social History Smoking Status: Current every day smoker tobacco type: cigarettes EXAM Physical Exam Const Vital Signs: 12/27/24 13:40 12/27/24 14:47 Temperature 97.8 F Temperature Source Temporal Pulse Rate 89 Respiratory Rate 16 Respiratory Pattern Normal Blood Pressure 135/102 H Blood Pressure Mean 113 Pulse Ox 99 Oxygen Delivery Method Room Air Positive well nourished and well developed General Appearance ED: well developed and NAD HEENT Reports moist mucous membranes HEENT Narrative: Normal oropharynx. No tonsillar edema or exudate appreciated. No erythema of the oropharynx. Patient is edentulous. Normal bilateral tympanic membranes. Normal ear canals. Eyes PERRL Eyes Narrative: No conjunctival injection present. Neck supple General: lymphadenopathy anterior cervical (Left more than right) Resp normal respiratory effort Resp Narrative: Scattered rhonchi at the left base that does clear. No crackles appreciated. No wheezing. Intermittent coarse/harsh cough. Cardio no murmurs Rate: regular rate Rhythm: regular rhythm GI non-tender Extremity normal to inspection and full ROM Neuro oriented x3 Sensorium / Orientation: alert Motor Exam: Negative for general weakness Psych mental status grossly normal Skin Rashes: no rashes MDM MDM MDM Narrative Medical decision making narrative: Patient's evaluated for 3 to 4 days of flulike symptoms. Is well-appearing with normal vital signs. Differential includes pneumonia, influenza and bronchitis. Flu swab obtained per protocol orders is positive. This is consistent with her HPI. Patient overall well-appearing. I do not think she is a chest x-ray and she does not have any crackles or abnormal breath sounds concerning for pneumonia. In addition she is afebrile and a 9% room air with respiratory rate of 16. Given her tobacco history and harsh cough I am concerned that she could go on to develop bronchitis. Will give a [id number] prescription for prednisone and also be given an inhaler to help with her cough. Is counseled to continue taking Tylenol as needed, use cough drops and also [id number] Mucinex. Given return precautions. Patient verbalized agreement understands plan. Discharged home in stable condition. Discharge Plan Triage Chief Complaint: Cold Sx ED Provider: Ying Marroquin Dx/Rx/DC Orders Clinical Impression: Influenza A, Cough Instructions: ED Bronchitis, No Antibiotic (Adult), ED Influenza (Adult) Prescriptions: New albuterol sulfate [Ventolin HFA] 90 mcg/actuation HFA aerosol inhaler 1 - 2 puff inhalation Q4H PRN PRN (Reason: Wheezing or cough) Qty: 1 0RF prednisone 20 mg tablet 40 mg PO DAILY Qty: 10 0RF No Action benzonatate 100 mg capsule 200 mg PO TID PRN (Reason: cough) Qty: 30 0RF naproxen [Naprosyn] 500 mg tablet 500 mg PO BID PRN (Reason: pain) Qty: 20 0RF Primary Care Provider: Tomasa Degroot Referrals: Tomasa Degroot DO [Primary Care Provider] - Activity Restrictions/Additional Instructions: You tested positive for influenza A. I am concerned that you could go on to develop bronchitis even given a prescription for an inhaler (use as needed for shortness of breath, wheezing or cough) and a [id number] prescription for prednisone. If you have worsening cough and wheezing you may start taking the prescription. Otherwise you can just throw the prescription away. Continue to push fluids and take Tylenol. I do recommend using [id number] Mucinex to help with chest congestion and help thin up mucus. Print Language: Upper Sorbian Disposition Disposition: Home, Self Care
== END 2024-12-27 16:28 | disposition home or self-care (01) ==
PROVIDERS: Emergency Provider Emergency Medicine; PCP Family Medicine; Visit Provider Emergency Medicine
DX: J10.1 Influenza due to other identified influenza virus with other respiratory manifestations (principal); F17.210 Nicotine dependence, cigarettes, uncomplicated; R05.9 Cough, unspecified
CPT/HCPCS: 87631; 99282